=== PATIENT | female | born 1930 | race Caucasian/White ===

== ENCOUNTER 2021-05-10 15:29 | Emergency (ER) | payer MEDICARE ==
[2021-05-10 16:24] LABS: HEMOGLOBIN 15.1 gm/dl (12.3-15.3); RED BLOOD COUNT 4.83 M/UL (4.00-5.10); WHITE BLOOD COUNT 13.2 K/UL (4.5-11.0)
[2021-05-10 16:54] LABS: BUN/CREATININE RATIO 21 (0-10)
[2021-05-10] MEDS ORDERED: AUGMENTIN 875-1 EACH PO ×2 (17:42→17:47)
[2021-05-10] MEDS ORDERED: VIBRAMYCIN100 MG PO ×2 (17:42→17:48)
[2021-05-13] MEDS ORDERED: DOXYCYCLINE HY100 MG PO (10:28)
[2021-05-13] MEDS ORDERED: AUGMENTIN 875-1 EACH PO (10:28)
[2021-05-13] MEDS ORDERED: AZITHROMYCIN250 MG PO (10:29)
[2021-05-13] MEDS ORDERED: PROAIR HFA8.5 GM INH (10:31)
[2021-05-13] MEDS ORDERED: POTASSIUM CHLO20 ME2 PO (10:31)
[2021-05-13] MEDS ORDERED: PREDNISONE10 M1 PO (10:31)
[2021-05-13] MEDS ORDERED: SIMVASTATIN20 MG PO (10:32)
[2021-05-13] MEDS ORDERED: MAXZIDE 75 MG-1 EACH PO (10:32)
[2021-05-13] MEDS ORDERED: ZYRTEC10 MG PO (19:16)
== END 2021-05-10 18:00 | disposition home or self-care (01) ==
LOC: ER1 15:29
PROVIDERS: Emergency Medicine
DX: J18.9 Pneumonia, unspecified organism (principal); Z20.822 Contact with and (suspected) exposure to COVID-19
CPT/HCPCS: 71045; 80053; 82550; 82553; 83874; 84484; 85025; 93005; 99285; U0002